=== PATIENT | male | born 2000 | race Caucasian/White ===

== ENCOUNTER 2022-06-18 07:11 | Day surgery (SDC) | payer OTHER ==
[~2022-06-18] VITALS: Ht 193 cm; Wt 77.0 kg
--- NOTE | 2022-06-18 06:57 | NUR ---
PT ARRIVED AMBULATORY WITH STEADY GAIT, ACCOMPANIED BY HIS MOTHER. PT A&O X4. NO APPARENT DISTRESS NOTED, BUT NOTABLE S/S OF WITHDRAWL OBSERVED. DISCUSSED POC AND SAFETY PRECAUTIONS. PT AND MOTHER VERBALIZED UNDERSTANDING AND DENIED ANY FURTHER QUESTIONS. CONSENTS OBTAINED. PT CHANGED INTO GOWN, COMPRESSION STOCKINGS, AND NONSKID SOCKS. CALL LIGHT WITHIN REACH.
[2022-06-18 07:16] VITALS: BP 138/79
--- NOTE | 2022-06-18 07:21 | NUR ---
DR. ROBLES NOTIFIED OF PATIETS ARRIVAL AND CURRENT VS BY TEREZA BOURGEOIS. NEW ORDERS OBTAINED AT THIS TIME. WILL MEDICATE AND CONTINUE TO MONITOR.
[2022-06-18 07:43] LABS: HEMATOCRIT 44.9 % (39.0-50.0); HEMOGLOBIN 14.7 g/dl (14.0-18.0); IMMATURE GRANULOCYTES 0.1 % (0.0-5.0); MEAN CELL VOLUME 87.5 fL CALC (80.0-100.0); MEAN CORPUSCULAR HGB 28.7 pG CALC (26.0-32.0); MEAN CORPUSCULAR HGB CONC 32.7 g/dL CAL (32.0-36.0); NEUT# 5.55 thou/uL (1.82-7.42); RED BLOOD COUNT 5.13 mill/uL (4.70-6.10)
[2022-06-18 08:01] LABS: ALBUMIN 4.9 g/dL (3.2-5.0); ALKALINE PHOSPHATASE 107 u/l (38-126); ANION GAP 15 (6-22 (CALC)); BILIRUBIN, TOTAL 0.7 mg/dL (0.0-1.4); BUN 11 mg/dL (9-20); BUN/CREATININE RATIO 17 (12-20 (CALC)); CARBON DIOXIDE 25 mmol/l (22-30); CHLORIDE 102 mmol/l (95-108); CREATININE 0.6 mg/dL (0.7-1.3); GFR FOR AFR.AMER. > 60 ML/MIN (>=60 (CALC)); GFR OTHER RACES > 60 ML/MIN (>=60 (CALC)); POTASSIUM 3.9 mmol/l (3.5-5.1); SGOT/AST 29 u/l (17-59); SODIUM 138 mmol/l (137-146); TOTAL PROTEIN 8.3 g/dL (6.3-8.2)
--- NOTE | 2022-06-18 13:28 | NUR ---
Induction Note Patient to [facility] procedure room. Time out performed at 1328. Patient placed on monitors, Dotty hugger, bilateral wrist restraints applied for ET tube protection. Versed 5mg given IV push at 1329 Tourniquet applied to right arm Lidocaine 100mg given at 1330 IV push followed by Rocoronium 10mg at 1331 IV push and held for 90 seconds. Propofol bolus of 110 mg given at 1333 IV push. Succinylcholine 80mg given IV push at 1334. Smooth intubation with 7.5 ETT secured 22 at the lip. Positive CO2. Positive Auscultation for air exchange. Patient placed on ventilator for spontaneous ventilation. Placed on Propofol IV drip at 1335. OG inserted. Positive air on auscultation. Positive gastric content. Stomach washed at this time.
--- NOTE | 2022-06-18 13:45 | NUR ---
OG close note Stomach washed at this time. Naltrexone 50 mg with Clonidine 0.2 mg via OG tube. OG will be clamped for 45 minutes.
--- NOTE | 2022-06-18 14:07 | NUR ---
PT HR SUSTAINING IN 120S. METOPROLOL 2.5MG IV ADMINISTRED AT THIS TIME PER DR. VERDUZCO VERBAL ORDERS. WILL CONTINUE TO MONITOR.
--- NOTE | 2022-06-18 14:30 | NUR ---
OG open note OG open at this time. Gastric content draining into drainage bag. OG to drain for 45 minutes. Propofol will be titrated down based on patient.
--- NOTE | 2022-06-18 15:19 | NUR ---
OG close note Stomach washed at this time. Naltrexone 50 mg with Clonidine 0.2 mg via OG tube. OG will be clamped for 45 minutes.
[2022-06-18] MEDS ORDERED: CLONIDINE0.1 MG PO (16:42)
[2022-06-18] MEDS ORDERED: NALTREXONE50 MG PO (16:42)
[2022-06-18] MEDS ORDERED: KLONOPIN2 MG PO (16:43)
--- NOTE | 2022-06-18 18:50 | NUR ---
OG close note Stomach washed at this time. Naltrexone 25 mg, Valium 10mg, with Clonidine 0.2 mg via OG tube. OG will be clamped for 45 minutes.
--- NOTE | 2022-06-18 19:25 | NUR ---
Extubation note Closing medications given Benadryl 50mg IV push, Decadron 10mg IV push,Magnesium 4 grams IV, Zofran 8mg IV push, Octreotide 100mcg SC. Stomach washed out prior to extubation. Suctioned gastric content. OG removed. Patient extubated. Propofol Discontinued. Wrist restraints removed. Dotty hugger Removed. See [facility] Moderate sedate recovery record for further notes and assessment.
[2022-06-18 19:40] VITALS: BP 116/59
--- NOTE | 2022-06-18 19:50 | NUR ---
PATIENT RESTING IN BED FACING HIS RIGHT SIDE. NO SIGNS OF DISTRESS NOTED. NO SIGNS OF PAIN. BED REMAINS IN LOW POSITION. BED ALARM ACTIVE.
--- NOTE | 2022-06-18 19:54 | NUR ---
PT TRANSFERED TO [facility] RM 284 IN STABLE CONDTIONS. VSS. NO APPARENT DISTRESS NOTED. REPORT GIVEN TO GIAN BOURGEOIS.
[2022-06-18 22:36] VITALS: BP 110/58
--- NOTE | 2022-06-18 23:58 | NUR ---
PATIENT RESTING IN BED. USES URINAL TO VOID. ABLE TO MAKE NEEDS KNOWN. DRINKING WATER WITHOUT DIFFICULTY. BED REMAINS IN LOW POSITION. BED ALARM ACTIVE. CALL LIGHT IN REACH.
[2022-06-19 03:50] VITALS: BP 99/42
--- NOTE | 2022-06-19 04:56 | NUR ---
PATIENT REMAINS RESTING IN BED. SITS UP FREQUENTLY AND LAYS BACK DOWN. REMAINS ALERT. ABLE TO MAKE NEEDS KNOWN. BED REMAINS IN LOW POSITION. BED ALARM ACTIVE. CALL HURST IN REACH.
[2022-06-19 05:16] LABS: IMMATURE GRANULOCYTES 0.2 % (0.0-5.0); MEAN CELL VOLUME 87.8 fL CALC (80.0-100.0); MEAN CORPUSCULAR HGB 28.9 pG CALC (26.0-32.0); MEAN CORPUSCULAR HGB CONC 32.9 g/dL CAL (32.0-36.0); NEUT# 9.31 thou/uL (1.82-7.42); RED BLOOD COUNT 4.36 mill/uL (4.70-6.10); RED CELL DISTRI WIDTH 12.1 % (11.5-15.5)
[2022-06-19 05:24] LABS: HEMATOCRIT 38.3 % (39.0-50.0); HEMOGLOBIN 12.6 g/dl (14.0-18.0)
[2022-06-19 05:27] LABS: ALKALINE PHOSPHATASE 75 u/l (38-126); ANION GAP 15 (6-22 (CALC)); BILIRUBIN, TOTAL 0.6 mg/dL (0.0-1.4); BUN 12 mg/dL (9-20); BUN/CREATININE RATIO 17 (12-20 (CALC)); CARBON DIOXIDE 25 mmol/l (22-30); CHLORIDE 107 mmol/l (95-108); CREATININE 0.7 mg/dL (0.7-1.3); GFR FOR AFR.AMER. > 60 ML/MIN (>=60 (CALC)); GFR OTHER RACES > 60 ML/MIN (>=60 (CALC)); POTASSIUM 4.2 mmol/l (3.5-5.1); SGOT/AST 24 u/l (17-59); SODIUM 143 mmol/l (137-146); TOTAL PROTEIN 6.7 g/dL (6.3-8.2)
--- NOTE | 2022-06-19 07:00 | NUR ---
REPORT RECEIVED FROM TRUCK MANAGER RN. PT RESTING IN BED WITH NO DISTRESS NOTED. BREATHING IS EVEN AND UNLABORED. FAL/SAFTEY PRECAUTION IN PLACE, CALL LIGHT WITHIN REACH
[2022-06-19 09:00] VITALS: BP 120/54
[2022-06-19 09:22] VITALS: BP 120/54
--- NOTE | 2022-06-19 12:13 | NUR ---
PT RESTING IN BED A&OX3. STATES NO NEEDS AT THIS TIME. ABLE TO TAKE MEDICATIONS. FALL/SAFTEY PRECAUTION IN PLACE, CALL LIGHT WITHIN REACH.
--- NOTE | 2022-06-19 13:15 | NUR ---
Discharge instructions given. Patient verbalizes understanding of same. Discharged in stable condition via Wheelchair to Home with [facility] staff. All belongings sent with pt.
== END 2022-06-19 13:15 | disposition home or self-care (01) | DRG 897 ==
LOC: ANR 07:11 → ANR-I 07:27 → ANR 09:00 → MS2 20:35 → ANR 06-19 13:15
PROVIDERS: ATTEND Anesthesiology
DX: F11.20 Opioid dependence, uncomplicated (principal)
CPT/HCPCS: J2354